=== PATIENT | male | born 1995 | race Caucasian/White ===

== ENCOUNTER 2016-11-17 10:54 | Emergency (ER) | payer OTHER ==
--- NOTE | 2016-11-17 12:05 | ED CLINICAL REPORT ---
Clinical Report - Physicians/Mid Levels [facility] [address] [place] [address] 11/17/2016 10:54 Patient: KARY LOPEZ Time Seen: 11:37 Nov 17 2016. Arrived- By private vehicle. Historian- patient. CPT: ER phys charges level 3 (#[id number]). HISTORY OF PRESENT ILLNESS Chief Complaint: CHEST DISCOMFORT. At its maximum, severity described as moderate. When seen in the E.D., severity described as mild. Modifying factors- worsened by cough and deep breaths. It is described as sharp, "pain" and well localized and it is described as located in the right chest area. 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 Onset during cough. No nausea or diaphoresis. He has had difficulty breathing. Similar symptoms previously: None. Recent medical care: Not recently seen/assessed. REVIEW OF SYSTEMS No fever, chills, pedal edema, calf pain or fainting episodes. No headache, sore throat, abdominal pain, skin rash or joint pain. He has had a moderate cough productive of moderate amounts of green, brown sputum. There has been a change from the baseline cough. All systems otherwise negative, except as recorded above. PAST HISTORY ADHD. No history of heart disease, lung disease or diabetes mellitus. No history of pneumonia. Medications: Adderall Oral. Allergies: Morphine and Related.(itching) Tramadol. SOCIAL HISTORY Heavy tobacco smoker (cigarette)- less than 1 pack per day. Occasional alcohol use. History of occasional drug use. ADDITIONAL NOTES The nursing notes have been reviewed. PHYSICAL EXAM Vital Signs: 11/17/2016 11:05 BP: 113/59. HR: 72. RR: 18. O2 saturation: 97%. Temp: 98.1 F. Appearance: Alert. No acute distress. Anxious. Eyes: Pupils equal, round and reactive to light. Eyes normal inspection. ENT: Ears normal. Nose normal. Pharynx normal. Neck: Normal inspection. Neck supple. CVS: Normal heart rate and rhythm. Heart sounds normal. Pulses normal. Respiratory: No respiratory distress. Chest pain reproducible with palpation of the costal cartilage and anterior chest wall, with movement of the trunk and right arm and with deep breathing. Breath sounds normal. Abdomen: Soft and nontender. Back: Normal external inspection. Skin: Skin warm. Normal skin color. No rash. Extremities: No calf tenderness. No lower extremity edema. Neuro: Oriented X 3. No motor deficit. No sensory deficit. LABS, X-RAYS, AND EKG Chest X-ray: No infiltrate. Views: PA and lateral. Technique: good. The X-rays were independently viewed by me and interpreted contemporaneously by me. PROGRESS AND PROCEDURES Patient/family counseled. Disposition: Discharged. Condition: stable. CLINICAL IMPRESSION Acute bacterial mucopurulent bronchitis associated with bronchospasm. Cough. INSTRUCTIONS No strenuous activity. Rest. Do not smoke. Warnings: Further evaluation is necessary. GENERAL WARNINGS: Return or contact your physician immediately if your condition worsens or changes unexpectedly, if not improving as expected, or if other problems arise. Your Current Medications: CONTINUE TAKING THE FOLLOWING MEDICATIONS: Adderall Oral. Prescription Medications: Albuterol HFA oral inhaler: inhale 2 puffs via spacer every 4 hours as needed for wheezing or shortness of breath, until symptoms improve. Dispense one (1) unit. No refill. Zithromax 250 mg tablets: take 2 orally today, followed by 1 daily for the next 4 days. No refills. Substitution is permissible. Follow-up: Follow up with your doctor in one week. Call for an appointment. Understanding of the discharge instructions verbalized by patient. (Electronically signed by Jamar Ahuja MD 11/17/2016 14:56)
--- NOTE | 2016-11-17 12:05 | ED NURSING NOTES ---
Clinical Report - Nurses [facility] [place] [address] 11/17/2016 10:54 Patient: KARY LOPEZ TRIAGE Triage time 11:06. Acuity: LEVEL 3. Chief Complaint: (cough, right sided chest pain). Alert. No acute distress. --11:11 Kendall Andrade R.N. 11:05 11/17/16. BP: 113/59. HR: 72. RR: 18. O2 saturation: 97%. Temp: 98.1 F. Pain level now 10/16. --11:11 Kendall Andrade R.N. Weight: 68 kg stated. Height/Length: 72 inches Per Patient. BMI: 20.3. --11:10 Kendall Andrade R.N. Medications Adderall Oral. --11:08 Kendall Andrade R.N. Allergies Morphine and Related.(itching) --11:07 Kendall Andrade R.N. Tramadol. --11:07 Kendall Andrade R.N. History Arrived by private vehicle. Historian: patient. Onset. (1 weeks ago). Treatment RN MEDICARE: None. SOCIAL HX: Current every day smoker. Alcohol use. History of drug use. SELF HARM ASSESSMENT: A self harm assessment was performed. The patient answered "no" to the question "Do you have thoughts of harming or killing yourself?". FALL RISK ASSESSMENT: Fall risk assessment completed. No fall risk identified. NUTRITIONAL RISK ASSESSMENT: The nutritional risk assessment revealed no deficiencies. FUNCTIONAL ASSESSMENT: Functional assessment: no impairments noted. LEARNING NEEDS ASSESSMENT: The learning needs assessment revealed no barriers. SKIN INTEGRITY ASSESSMENT: Skin integrity risk assessment completed. No skin integrity risk identified. --11:11 Kendall Andrade R.N. Interventions ID band on patient. --11:11 Kendall Andrade R.N. PHYSICAL ASSESSMENT GENERAL / NEURO / PSYCH: Alert. Oriented X 4. Appears in no acute distress. RESPIRATORY: Respirations not labored. Bilateral wheezes present. Rhonchi present in the right lung base. GI / : Abdomen soft. SKIN: Skin is warm and dry. --11:13 Kendall Andrade R.N. NURSING PROGRESS NOTES Patient gowned. Two patient identifiers checked. Call light placed in reach. Side rails up x 1. Bed placed in lowest position. --11:13 Kendall Andrade R.N. DISPOSITION / DISCHARGE Condition at departure: unchanged. No learning barriers present. Discharge instructions provided and reviewed with the patient. Patient verbalized understanding. Written instructions provided in [place]. The patient was discharged by the physician. He was discharged home. He left the Emergency Department ambulatory and via private vehicle. --12:21 Kendall Andrade R.N. 12:19 11/17/16. BP: 110/60. HR: 70. RR: 18. O2 saturation: 97%. Temp: 98.7 F. Pain level now 2/10. --12:21 Kendall Andrade R.N. Locked/Released at 11/17/2016 12:23 by Kendall Andrade R.N.
--- NOTE | 2016-11-17 12:05 | ED ORDER SUMMARY ---
..... Patient: KARY LOPEZ OrderSheet [facility] VisitID: [id number] [address] [place] [address] 21y, M Registration Date/Time: 11/17/2016 ORDER SHEET Weight: 68.0 kg (stated) Allergies: Morphine and Related, Tramadol GENERAL ORDERS: Chest 2V Urgent (11:45 11/17/2016 Adolfo WING) (Ack 11:47 IJurca ER Tech1) (12[facility] MEDICATION ORDERS: IV FLUIDS: ORDER SHEET NOTES: [Electronically signed by Kendall Andrade R.N. (12:23 11/17/2016)] [Electronically signed by Jamar Ahuja MD (14:56 11/17/2016)] [Electronically locked/signed by Kendall Andrade R.N. (12:23 11/17/2016)]
--- NOTE | 2016-11-17 12:05 | ED CLINICAL REPORT ---
Clinical Report - Physicians/Mid Levels [facility] [address] [place] [address] 11/17/2016 10:54 Patient: KARY LOPEZ Time Seen: 11:37 Nov 17 2016. Arrived- By private vehicle. Historian- patient. CPT: ER phys charges level 3 (#[id number]). HISTORY OF PRESENT ILLNESS Chief Complaint: CHEST DISCOMFORT. At its maximum, severity described as moderate. When seen in the E.D., severity described as mild. Modifying factors- worsened by cough and deep breaths. It is described as sharp, "pain" and well localized and it is described as located in the right chest area. 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 Onset during cough. No nausea or diaphoresis. He has had difficulty breathing. Similar symptoms previously: None. Recent medical care: Not recently seen/assessed. REVIEW OF SYSTEMS No fever, chills, pedal edema, calf pain or fainting episodes. No headache, sore throat, abdominal pain, skin rash or joint pain. He has had a moderate cough productive of moderate amounts of green, brown sputum. There has been a change from the baseline cough. All systems otherwise negative, except as recorded above. PAST HISTORY ADHD. No history of heart disease, lung disease or diabetes mellitus. No history of pneumonia. Medications: Adderall Oral. Allergies: Morphine and Related.(itching) Tramadol. SOCIAL HISTORY Heavy tobacco smoker (cigarette)- less than 1 pack per day. Occasional alcohol use. History of occasional drug use. ADDITIONAL NOTES The nursing notes have been reviewed. PHYSICAL EXAM Vital Signs: 11/17/2016 11:05 BP: 113/59. HR: 72. RR: 18. O2 saturation: 97%. Temp: 98.1 F. Appearance: Alert. No acute distress. Anxious. Eyes: Pupils equal, round and reactive to light. Eyes normal inspection. ENT: Ears normal. Nose normal. Pharynx normal. Neck: Normal inspection. Neck supple. CVS: Normal heart rate and rhythm. Heart sounds normal. Pulses normal. Respiratory: No respiratory distress. Chest pain reproducible with palpation of the costal cartilage and anterior chest wall, with movement of the trunk and right arm and with deep breathing. Breath sounds normal. Abdomen: Soft and nontender. Back: Normal external inspection. Skin: Skin warm. Normal skin color. No rash. Extremities: No calf tenderness. No lower extremity edema. Neuro: Oriented X 3. No motor deficit. No sensory deficit. LABS, X-RAYS, AND EKG Chest X-ray: No infiltrate. Views: PA and lateral. Technique: good. The X-rays were independently viewed by me and interpreted contemporaneously by me. PROGRESS AND PROCEDURES Patient/family counseled. Disposition: Discharged. Condition: stable. CLINICAL IMPRESSION Acute bacterial mucopurulent bronchitis associated with bronchospasm. Cough. INSTRUCTIONS No strenuous activity. Rest. Do not smoke. Warnings: Further evaluation is necessary. GENERAL WARNINGS: Return or contact your physician immediately if your condition worsens or changes unexpectedly, if not improving as expected, or if other problems arise. Your Current Medications: CONTINUE TAKING THE FOLLOWING MEDICATIONS: Adderall Oral. Prescription Medications: Albuterol HFA oral inhaler: inhale 2 puffs via spacer every 4 hours as needed for wheezing or shortness of breath, until symptoms improve. Dispense one (1) unit. No refill. Zithromax 250 mg tablets: take 2 orally today, followed by 1 daily for the next 4 days. No refills. Substitution is permissible. Follow-up: Follow up with your doctor in one week. Call for an appointment. Understanding of the discharge instructions verbalized by patient. (Electronically signed by Jamar Ahuja MD 11/17/2016 14:56)
--- NOTE | 2016-11-17 12:05 | ED ORDER SUMMARY ---
..... Patient: KARY LOPEZ OrderSheet [facility] VisitID: [id number] [address] [place] [address] 21y, M Registration Date/Time: 11/17/2016 ORDER SHEET Weight: 68.0 kg (stated) Allergies: Morphine and Related, Tramadol GENERAL ORDERS: Chest 2V Urgent (11:45 11/17/2016 Adolfo WING) (Ack 11:47 IJurca ER Tech1) (12:23 [facility] MEDICATION ORDERS: IV FLUIDS: ORDER SHEET NOTES: [Electronically signed by Kendall Andrade R.N. (12:23 11/17/2016)] [Electronically signed by Jamar Ahuja MD (14:56 11/17/2016)] [Electronically locked/signed by Kendall Andrade R.N. (12:23 11/17/2016)]
--- NOTE | 2016-11-17 12:05 | ED NURSING NOTES ---
Clinical Report - Nurses [facility] [place] [address] 11/17/2016 10:54 Patient: KARY LOPEZ TRIAGE Triage time 11:06. Acuity: LEVEL 3. Chief Complaint: (cough, right sided chest pain). Alert. No acute distress. --11:11 Kendall Andrade R.N. 11:05 11/17/16. BP: 113/59. HR: 72. RR: 18. O2 saturation: 97%. Temp: 98.1 F. Pain level now 10/16. --11:11 Kendall Andrade R.N. Weight: 68 kg stated. Height/Length: 72 inches Per Patient. BMI: 20.3. --11:10 Kendall Andrade R.N. Medications Adderall Oral. --11:08 Kendall Andrade R.N. Allergies Morphine and Related.(itching) --11:07 Kendall Andrade R.N. Tramadol. --11:07 Kendall Andrade R.N. History Arrived by private vehicle. Historian: patient. Onset. (1 weeks ago). 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 SOCIAL HX: Current every day smoker. Alcohol use. History of drug use. SELF HARM ASSESSMENT: A self harm assessment was performed. The patient answered "no" to the question "Do you have thoughts of harming or killing yourself?". FALL RISK ASSESSMENT: Fall risk assessment completed. No fall risk identified. NUTRITIONAL RISK ASSESSMENT: The nutritional risk assessment revealed no deficiencies. FUNCTIONAL ASSESSMENT: Functional assessment: no impairments noted. LEARNING NEEDS ASSESSMENT: The learning needs assessment revealed no barriers. SKIN INTEGRITY ASSESSMENT: Skin integrity risk assessment completed. No skin integrity risk identified. --11:11 Kendall Andrade R.N. Interventions ID band on patient. --11:11 Kendall Andrade R.N. PHYSICAL ASSESSMENT GENERAL / NEURO / PSYCH: Alert. Oriented X 4. Appears in no acute distress. RESPIRATORY: Respirations not labored. Bilateral wheezes present. Rhonchi present in the right lung base. GI / : Abdomen soft. SKIN: Skin is warm and dry. --11:13 Kendall Andrade R.N. NURSING PROGRESS NOTES Patient gowned. Two patient identifiers checked. Call light placed in reach. Side rails up x 1. Bed placed in lowest position. --11:13 Kendall Andrade R.N. DISPOSITION / DISCHARGE Condition at departure: unchanged. No learning barriers present. Discharge instructions provided and reviewed with the patient. Patient verbalized understanding. Written instructions provided in [place]. The patient was discharged by the physician. He was discharged home. He left the Emergency Department ambulatory and via private vehicle. --12:21 Kendall Andrade R.N. 12:19 11/17/16. BP: 110/60. HR: 70. RR: 18. O2 saturation: 97%. Temp: 98.7 F. Pain level now 2/10. --12:21 Kendall Andrade R.N. Locked/Released at 11/17/2016 12:23 by Kendall Andrade R.N.
--- NOTE | 2016-11-17 12:15 | DIAGNOSTIC IMAGING REPORT ---
PROCEDURE: XR CHEST 2 VIEW INDICATION: PNEUMONIA TECHNIQUE: PA and lateral views. COMPARISON: None. FINDINGS: Lungs are clear and hyperexpanded. Heart and mediastinum are normal. Thorax is normal. IMPRESSION: 1. Negative chest.
--- NOTE | 2016-11-17 14:57 | ED MED RECONCILIATION SUMMARY ---
Patient: KARY LOPEZ Medication Reconciliation Report [facility] VisitID: [id number] [address] [place] [address] 21y, M Registration Date/Time: 11/17/2016 Weight: 68.0 kg Height/Length: 72 in. BMI: 20.3 ALLERGIES: Morphine and Related, Tramadol The patient's Home Medications are listed below: CONTINUE TAKING THE FOLLOWING MEDICATIONS: Adderall Oral The source(s) of the original Home Medication information: Not obtained. The following Medications were given to the patient in the Emergency Department: None. The following Medications were prescribed to the patient: Albuterol HFA oral inhaler: inhale 2 puffs via spacer every 4 hours as needed for wheezing or shortness of breath, until symptoms improve. Dispense one (1) unit. No refill. -- Jamar Ahuja MD Zithromax 250 mg tablets: take 2 orally today, followed by 1 daily for the next 4 days. No refills. Substitution is permissible. -- Jamar Ahuja MD
--- NOTE | 2016-11-17 14:57 | ED DISCHARGE INSTRUCTIONS ---
Patient: KARY LOPEZ General Instructions [facility] VisitID: [id number] [place] [address] 21y, M Registration Date/Time: 11/17/2016 Cough. INSTRUCTIONS No strenuous activity. Rest. Do not smoke. Warnings: Further evaluation is necessary. GENERAL WARNINGS: Return or contact your physician immediately if your condition worsens or changes unexpectedly, if not improving as expected, or if other problems arise. Your Current Medications: CONTINUE TAKING THE FOLLOWING MEDICATIONS: Adderall Oral. Prescription Medications: Albuterol HFA oral inhaler: inhale 2 puffs via spacer every 4 hours as needed for wheezing or shortness of breath, until symptoms improve. Dispense one (1) unit. No refill. Zithromax 250 mg tablets: take 2 orally today, followed by 1 daily for the next 4 days. No refills. Substitution is permissible. Follow-up: Follow up with your doctor in one week. Call for an appointment. Understanding of the discharge instructions verbalized by patient. ADDITIONAL INFORMATION Bronchitis (Adult: Abx Tx) BRONCHITIS is an infection of the air passages (bronchial tubes). It often occurs during the common cold. Symptoms include cough with mucus (phlegm) and low-grade fever. Bronchitis usually lasts 7-14 days. Mild cases can be treated with simple home remedies. More severe infection is treated with an antibiotic. Home Care: If symptoms are severe, rest at home for the first 2-3 days. When you resume activity, don't let yourself get too tired. Do not smoke. Avoid being exposed to the smoke of others. You may use acetaminophen (Tylenol) or ibuprofen (Motrin, Advil) to control fever or pain, unless another medicine was prescribed for this. [NOTE: If you have chronic liver or kidney disease or ever had a stomach ulcer or GI bleeding, talk with your doctor before using these medicines.] Your appetite may be poor, so a light diet is fine. Avoid dehydration by drinking 6-8 glasses of fluids per day (water, soft, drinks, juices, tea, soup, etc.). Extra fluids will help loosen secretions in the lungs. Qlba-dnl-koisrit cough medicines that containdextromethorphan(such as Robitussin DM) and decongestants (Actifed or Sudafed) may help relieve cough and congestion. [NOTE: Do not use decongestants if you have high blood pressure.] Finish all antibiotic medicine, even if you are feeling better after only a few days. Follow Up with your doctor or as directed if you dont start to feel better after three days. [NOTE: If you are age 65 or older, or if you have chronic asthma or COPD, we recommend a PNEUMOCOCCAL VACCINATION every five years and a yearly INFLUENZAVACCINATION (FLU-SHOT) every . Ask your doctor about this. If you had an X-ray, a radiologist will review it. You will be notified of any new findings that may affect your care.] Get Prompt Medical Attention if any of the following occur: Fever over 100.4F (38.0C) for more than three days Trouble breathing, wheezing or pain with breathing Coughing up blood or increased amounts of colored sputum Weakness, drowsiness, headache, facial pain, ear pain or a stiff neck Bronchitis With Wheezing (Viral Or Bacterial: Adult) Bronchitis is an infection of the air passages. It often occurs during the common cold and is usually caused by a virus. Symptoms include cough with mucus (phlegm) and low-grade fever. If there is a lot of inflammation, air flow is restricted. The air passages may also go into spasm, especially if you are an asthmatic. This causes wheezing and difficulty breathing even in persons who do not have asthma. Bronchitis usually lasts 7-14 days. The wheezing should improve with treatment during the first week. An inhaler is often prescribed to relax the air passages and stop wheezing. Antibiotics will be prescribed if your doctor thinks there is also a secondary bacterial infection. Home Care: If symptoms are severe, rest at home for the first 2-3 days. When resuming activity, don't let yourself become overly tired. Do not smoke and avoid exposure to the smoke of others. You may use acetaminophen (Tylenol) or ibuprofen (Motrin, Advil) to control fever, unless another medicine was prescribed. [NOTE: If you have chronic liver or kidney disease or ever had a stomach ulcer or GI bleeding, talk with your doctor before using these medicines.] (Aspirin should never be used in anyone under 18 years of age who is ill with a fever. It may cause severe liver damage.) Your appetite may be poor so a light diet is fine. Avoid dehydration by drinking 6-8 glasses of fluids per day (water, soft, drinks, juices, tea, soup, etc.). Extra fluids will help loosen secretions in the lungs. Rljf-bbu-ltsdouk cough medicines that containdextromethorphan(such as Robitussin DM) and decongestants (Actifed or Sudafed) may help relieve cough and congestion. [NOTE: Do not use decongestants if you have high blood pressure.] If you were given an inhaler, use it exactly as directed. If you need to use it more often than prescribed, your condition may be worsening. Contact your doctor or this facility. If prescribed, finish all antibiotic medicine, even if you are feeling better after only a few days. Follow Up With Your Doctor Or As Directed If You Are Not Starting To Feel Better After Three Days. [NOTE: If you are age 65 or older, or if you have chronic asthma or COPD, we recommend a pneumococcal vaccination every five years and a yearly influenza vaccination (flu shot) every . Ask your doctor about this. If you had an x-ray or EKG (electrocardiogram), it will be reviewed by a specialist. You will be notified of any new findings that may affect your care.] Get Prompt Medical Attention If Any Of The Following Occur: Increased wheezing, shortness of breath or pain with breathing Fever of 100.4F (38C) oral or higher, not better with fever medication Coughing up blood or increasing amounts of colored sputum Weakness, drowsiness, headache, facial pain, ear pain or a stiff neck Lower leg swelling, tenderness, redness or pain Albuterol Sulfate Pressurized inhalation, suspension What is this medicine? ALBUTEROL (al BYOO ter ole) is a bronchodilator. It helps open up the airways in your lungs to make it easier to breathe. This medicine is used to treat and to prevent bronchospasm. How should I use this medicine? This medicine is for inhalation through the mouth. Follow the directions on your prescription label. Take your medicine at regular intervals. Do not use more often than directed. Make sure that you are using your inhaler correctly. Ask you doctor or health care provider if you have any questions. Talk to your color control supervisor regarding the use of this medicine in children. Special care may be needed. What side effects may I notice from receiving this medicine? Side effects that you should report to your doctor or health healthcare project manager as soon as possible: allergic reactions like skin rash, itching or hives, swelling of the face, lips, or tongue breathing problems chest pain feeling faint or lightheaded, falls high blood pressure irregular heartbeat fever muscle cramps or weakness pain, tingling, numbness in the hands or feet vomiting Side effects that usually do not require medical attention (report to your doctor or health healthcare project manager if they continue or are bothersome): cough difficulty sleeping headache nervousness or trembling stomach upset stuffy or runny nose throat irritation unusual taste What may interact with this medicine? anti-infectives like chloroquine and pentamidine caffeine cisapride diuretics medicines for colds medicines for depression or for emotional or psychotic conditions medicines for weight loss including some herbal products methadone some antibiotics like clarithromycin, erythromycin, levofloxacin, and linezolid some heart medicines steroid hormones like dexamethasone, cortisone, hydrocortisone theophylline thyroid hormones What if I miss a dose? If you miss a dose, use it as soon as you can. If it is almost time for your next dose, use only that dose. Do not use double or extra doses. Where should I keep my medicine? Keep out of the reach of children. Store at room temperature between 15 and 30 degrees C (59 and 86 degrees F). The contents are under pressure and may burst when exposed to heat or flame. Do not freeze. This medicine does not work as well if it is too cold. Throw away any unused medicine after the expiration date. Inhalers need to be thrown away after the labeled number of puffs have been used or by the expiration date; whichever comes first. Ventolin HFA should be thrown away 12 months after removing from foil pouch. Check the instructions that come with your medicine. What should I tell my health care provider before I take this medicine? They need to know if you have any of the following conditions: diabetes heart disease or irregular heartbeat high blood pressure pheochromocytoma seizures thyroid disease an unusual or allergic reaction to albuterol, levalbuterol, sulfites, other medicines, foods, dyes, or preservatives or trying to get breast-feeding What should I watch for while using this medicine? Tell your doctor or health healthcare project manager if your symptoms do not improve. Do not use extra albuterol. If your asthma or bronchitis gets worse while you are using this medicine, call your doctor right away. If your mouth gets dry try chewing sugarless gum or sucking hard candy. Drink water as directed. You have been given the following additional information: Bronchitis, Antiobiotic Treatment (Adult) Bronchitis With Wheezing (Adult) Albuterol Sulfate Pressurized inhalation, suspension No strenuous activity. Rest. (Electronically signed by Jamar Ahuja MD 11/17/2016 14:56)
--- NOTE | 2016-11-17 14:57 | ED MED RECONCILIATION SUMMARY ---
Patient: KARY LOPEZ Medication Reconciliation Report [facility] VisitID: [id number] [address] [place] [address] 21y, M Registration Date/Time: 11/17/2016 Weight: 68.0 kg Height/Length: 72 in. BMI: 20.3 ALLERGIES: Morphine and Related, Tramadol The patient's Home Medications are listed below: CONTINUE TAKING THE FOLLOWING MEDICATIONS: Adderall Oral The source(s) of the original Home Medication information: Not obtained. The following Medications were given to the patient in the Emergency Department: None. The following Medications were prescribed to the patient: Albuterol HFA oral inhaler: inhale 2 puffs via spacer every 4 hours as needed for wheezing or shortness of breath, until symptoms improve. Dispense one (1) unit. No refill. -- Jamar Ahuja MD Zithromax 250 mg tablets: take 2 orally today, followed by 1 daily for the next 4 days. No refills. Substitution is permissible. -- Jamar Ahuja MD
--- NOTE | 2016-11-17 14:57 | ED MAR SUMMARY ---
..... Medication Administration Record [facility] [address] [place], [place] [id number] Patient: KARY LOPEZ Krystle Visit ID: [id number] 21y, M Weight: 68.0 kg Height/Length: 72 in BMI: 20.3 ALLERGIES: Tramadol, Morphine and Related
--- NOTE | 2016-11-17 14:57 | ED MAR SUMMARY ---
..... Medication Administration Record [facility] [address] [place], [place] [id number] Patient: KARY LOPEZ Krystle Visit ID: [id number] 21y, M Weight: 68.0 kg Height/Length: 72 in BMI: 20.3 ALLERGIES: Tramadol, Morphine and Related
== END 2016-11-17 12:45 | disposition home or self-care (01) ==
LOC: ED SRH 10:54
DX: J20.9 Acute bronchitis, unspecified (principal); R05 Cough; Z88.5 Allergy status to narcotic agent; Z79.899 Other long term (current) drug therapy; F17.210 Nicotine dependence, cigarettes, uncomplicated